=== PATIENT | male | born 1990 | race Asian ===

== ENCOUNTER 2021-08-31 15:27 | Emergency (ER) | payer OTHER ==
[~2021-08-31] VITALS: Ht 172.7 cm; Wt 90.9 kg
[2021-08-31] MEDS ORDERED: AMOXICILLIN500 MG PO (16:08)
[2021-08-31] MEDS ORDERED: ULTRAM 50MG50 MG PO (16:08)
[2021-08-31] MEDS ORDERED: FLUORESCEIN SOD(OPTH) 1 MG STRP ONE (16:12)
[2021-08-31] MEDS ORDERED: TETRACAINE HCL 0.5% OPTH SOLN 4 ML BTL ONE (16:12)
[2021-08-31] MEDS ORDERED: TETRACAINE HCL 0.5% OPTH SOLN 4 ML BTL OP ONE (16:15)
[2021-08-31] MEDS ORDERED: FLUORESCEIN SOD(OPTH) 1 MG STRP OP ONE (16:15)
== END 2021-08-31 16:22 | disposition home or self-care (01) ==
LOC: FSED 15:32
DX: S05.11XA Contusion of eyeball and orbital tissues, right eye, initial encounter (principal); W50.0XXA Accidental hit or strike by another person, initial encounter; Y93.67 Activity, basketball; Y92.89 Other specified places as the place of occurrence of the external cause; H16.001 Unspecified corneal ulcer, right eye
CPT/HCPCS: 99283